=== PATIENT | female | born 1980 | race Caucasian/White ===

== ENCOUNTER 2016-06-28 01:04 | Inpatient (IN) | payer OTHER ==
[2016-06-28] VITALS (10 sets, daily range): BP systolic 118–147; BP diastolic 64–99
[~2016-06-28] VITALS: Ht 172.7 cm; Wt 49.0 kg
--- NOTE | ~2016-06-28 | CON ---
[place], [place] REPORT OF CONSULTATION NAME: KYLEE TRAORE UNIT #: [id number] ROOM: 404 DOCTOR: BC BREWSTER MD BIRTHDATE: [birth year] DOS: 07/01/2016 CHIEF COMPLAINT: "I need help, I really do." HISTORY OF PRESENT ILLNESS: This is a 35-year-old white female who was brought to the Emergency Room with altered mental status. The patient had apparently gone to a [employer] party and went home, went to bed, woke up in an agitated, combative state. She was very variable. Her boyfriend did call EMS who did give her some Narcan because she was somewhat unresponsive by the time they got there. This had limited benefit. She was brought to the Emergency Room and later admitted to the ICU for further stabilization. The patient apparently has a significant history of snorting heroin and also using cocaine. She does report currently that she has been increasingly depressed and despondent and is stressed out by life and does feel that she needs to be seen by a counseling psychiatrist. She reports having been seen in the past by psychiatrist and has a lengthy history of medication trials. Per her report, they have been unsuccessful. PAST MEDICAL HISTORY: Remarkable for polysubstance abuse, possible bipolar disorder, lupus, SIRS, STD exposure, dermatitis. MENTAL STATUS: The patient is alert and oriented. She does appear quite depressed and despondent. She has some anxious overtones. There is no overt hypomania or brett. There are no auditory or visual hallucinations, delusions, or paranoia. Memory is intact. DIAGNOSIS: Bipolar type 2 and polysubstance abuse. PLAN: I will start her on Vistaril 50 mg 3 times a day as a non-addictive antianxiety agent and also start her on Trintellix 10 mg daily as an antidepressant that will help with anxiety. She would benefit greatly from outpatient therapy and I would suggest that she follow up at [facility] to see a counselor there and also to see either Regina Weiss or Gabriela for further medication management. BC BREWSTER MD CM:CONSTR:REPORT OF CONSULTATION 0853 07/01/16 1116 interface
[~2016-06-28 01:04] MED LIST: ALBUTEROL0.09 MG/A2 INH; AMOXICILLIN500 M2 PO; AMOXICILLIN500 MG PO; AMOXIL500 MG PO; ATARAX25 MG PO; ATIVAN0.5 MG PO; AUGMENTIN 875875 MG PO; BACTRIM DS 8001 TA1 PO; BACTROBAN CREAM15 GM PO; BENADRYL25 M1 PO; BENADRYL25 MG PO; BUSPAR15 MG PO; CELEXA20 MG PO; CIPRO500 MG PO; CIPRODEX 0.3%-7.5 ML OT; CIPROFLOXACIN500 MG PO; CLARITIN10 MG PO; CYCLOBENZAPRINE10 MG PO; DARVOCET N 1001 TAB PO; DAYPRO600 M1 PO; EFFEXOR XR75 M1 PO; ELIMITE 5%60 GM PO; FLAGYL500 MG PO; FLEXERIL10 MG PO; GEODON20 MG PO; HYCODAN 1.5 MG480 M1 PO; HYDROCODONE BIT1 T11 PO; KEFLEX500 MG PO; KENALOG 0.1% OI15 GM PO; MEDROL DOSEPAK4 MG PO; MOTRIN600 MG PO; MOTRIN800 MG PO; MYCOLOG CREAM 115 GM T; NAPROSYN375 MG PO; NAPROSYN500 MG PO; NKHM; PERCOCET 325 MG1 TA2 PO; PERCOCET 325 MG1 TA5 PO; PHENERGAN12.5 MG RC; PREDNICOT20 MG PO; PREDNISONE10 MG PO; PREDNISONE50 MG PO; PROVENTIL0.09 MG/AC IH; Peridex 473 ML473 ML PO; Phenergan25 MG PO; REQUIP0.25 MG PO; ROBAXIN500 MG PO; ROBAXIN750 MG PO; TRAMADOL HCL50 MG PO; TRIMOX500 MG PO; TYLENOL W/CODEI1 TA2 PO; ULTRAM50 MG PO; VALIUM10 MG PO; VENTOLIN0.09 MG/AC IH; VICODIN 5/500 505 MG PO; VISTARIL25 M2 PO; VISTARIL50 MG PO; VOLTAREN50 M1 PO; XANAX0.5 MG PO; ZANTAC150 MG PO; ZITHROMAX250 MG PO; ZOFRAN ODT4 MG SL; ZOFRAN ODT8 MG PO
[2016-06-28 01:37] LABS: BASO % 0.2 % (0.0-1.0); EOS # 0.1 10*3/uL (0.0-0.4); EOS % 0.6 % (1.0-4.0); HEMATOCRIT 40.1 % (37.0-47.0); HEMOGLOBIN 13.6 g/dl (12.0-16.0); LYMPH # 1.2 10*3/uL (1.3-4.4); LYMPH % 14.5 % (27.0-41.0); MEAN CORPUSCULAR HGB 31.6 pg (27.0-31.0); MEAN CORPUSCULAR HGB CONC 33.9 g/dl (33.0-37.0); MEAN PLATELET VOLUME 10.2 fl (9.6-12.3); MONO # 0.6 10*3/uL (0.1-1.0); MONO % 6.6 % (3.0-9.0); NEUT # 6.6 10*3/uL (2.3-7.9); NEUT % 77.9 % (47.0-73.0); PLATELET COUNT AUTOMATED 250 10*3/uL (130-400); RED BLOOD COUNT 4.31 10*6/uL (4.10-5.10); RED CELL DISTRI WIDTH 13.2 % (0-14.5); WHITE BLOOD COUNT 8.4 10*3/uL (4.8-10.8)
[2016-06-28 01:53] LABS: ALKALINE PHOSPHATASE 53 U/L (45-117); BILIRUBIN, TOTAL 0.7 mg/dl (0.2-1.0); BUN 9 mg/dl (7-24); CARBON DIOXIDE 28 mmol/L (21-32); CHLORIDE 104 mmol/L (98-107); EST GLOM FILT AFRICAN AMERICAN > 60 ml/min; GLUCOSE 120 mg/dL (65-99); POTASSIUM 3.8 mmol/L (3.5-5.1); SGOT/AST 13 IU/L (3-35); SGPT/ALT 15 U/L (12-78); SODIUM 139 mmol/L (136-145); TOTAL PROTEIN 7.5 gm/dL (6.4-8.2)
[2016-06-28 01:55] LABS: MAGNESIUM 2.7 mg/dL (1.5-2.1)
[2016-06-28 01:56] LABS: B-hCG (QUALITATIVE) NEGATIVE (NEGATIVE)
[2016-06-28 02:08] LABS: TROPONIN I < 0.015 ng/ml (<0.045)
[2016-06-28 02:13] LABS: BILIRUBIN NEGATIVE (NEGATIVE); BLOOD NEGATIVE (NEGATIVE); CLARITY CLEAR (CLEAR); COLOR YELLOW (YELLOW); GLUCOSE NEGATIVE (NEGATIVE); KETONE NEGATIVE (NEGATIVE); LEUKO ESTERASE NEGATIVE (NEGATIVE); NITRITE NEGATIVE (NEGATIVE); PROTEIN 2+ (NEGATIVE); SPECIFIC GRAVITY 1.025 (1.005-1.030); UROBILINOGEN 0.2 E.U./dl (0.2-1.0)
[2016-06-28 02:23] LABS: URINE AMPHETAMINES < 1000 (1000ng/ml); URINE BARBITURATES < 200 (200ng/ml); URINE COCAINE > 300 (300ng/ml)
[2016-06-28 02:26] LABS: EPITHELIAL CELLS 20-25
[2016-06-28 02:27] LABS: BACTERIA TRACE; URINE REFLEX COMMENT NO (NO); WBC 0-2 wbc/hpf (0-5)
[2016-06-28 06:10] LABS: CKMB 0.9 ng/ml (0.5-3.6); CPK 63 U/L (26-192)
[2016-06-28 06:13] LABS: TROPONIN I < 0.015 ng/ml (<0.045)
[2016-06-28 12:46] LABS: CKMB 0.8 ng/ml (0.5-3.6); CPK 71 U/L (26-192)
[2016-06-28 12:47] LABS: TROPONIN I < 0.015 ng/ml (<0.045)
[2016-06-28 18:20] LABS: CKMB 0.6 ng/ml (0.5-3.6); CPK 64 U/L (26-192)
[2016-06-28 18:21] LABS: TROPONIN I < 0.015 ng/ml (<0.045)
[2016-06-29] VITALS: BP 123/85
[2016-06-29 04:00] VITALS: BP 120/81
[2016-06-29 06:13] LABS: BUN 11 mg/dl (7-24); CARBON DIOXIDE 20 mmol/L (21-32); CHLORIDE 111 mmol/L (98-107); EST GLOM FILT AFRICAN AMERICAN > 60 ml/min; GLUCOSE 73 mg/dL (65-99); POTASSIUM 3.5 mmol/L (3.5-5.1); SODIUM 142 mmol/L (136-145)
[2016-06-29 08:00] VITALS: BP 124/86
[2016-06-29 16:00] VITALS: BP 118/88
[2016-06-29 20:02] VITALS: BP 132/82
[2016-06-30] VITALS: BP 129/77
[2016-06-30 04:00] VITALS: BP 130/76
[2016-06-30 08:00] VITALS: BP 139/82
[2016-06-30 15:44] VITALS: BP 133/82
[2016-06-30 20:00] VITALS: BP 122/82
[2016-07-01] VITALS: BP 133/81
[2016-07-01 04:00] VITALS: BP 127/79
[2016-07-01 05:58] LABS: BASO % 0.4 % (0.0-1.0); EOS # 0.2 10*3/uL (0.0-0.4); EOS % 3.4 % (1.0-4.0); HEMATOCRIT 36.4 % (37.0-47.0); HEMOGLOBIN 12.1 g/dl (12.0-16.0); LYMPH # 2.1 10*3/uL (1.3-4.4); LYMPH % 41.4 % (27.0-41.0); MEAN CELL VOLUME 92.9 fl (81.0-99.0); MEAN CORPUSCULAR HGB 30.9 pg (27.0-31.0); MEAN CORPUSCULAR HGB CONC 33.2 g/dl (33.0-37.0); MEAN PLATELET VOLUME 10.6 fl (9.6-12.3); MONO # 0.5 10*3/uL (0.1-1.0); MONO % 9.5 % (3.0-9.0); NEUT # 2.2 10*3/uL (2.3-7.9); NEUT % 44.9 % (47.0-73.0); PLATELET COUNT AUTOMATED 215 10*3/uL (130-400); RED BLOOD COUNT 3.92 10*6/uL (4.10-5.10); RED CELL DISTRI WIDTH 13.1 % (0-14.5)
[2016-07-01 06:14] LABS: BUN 3 mg/dl (7-24); CARBON DIOXIDE 26 mmol/L (21-32); CHLORIDE 110 mmol/L (98-107); EST GLOM FILT AFRICAN AMERICAN > 60 ml/min; GLUCOSE 97 mg/dL (65-99); POTASSIUM 3.6 mmol/L (3.5-5.1); SODIUM 142 mmol/L (136-145)
[2016-07-01 08:00] VITALS: BP 100/59
[2016-07-01] MEDS ORDERED: ATARAX,VISTARIL50 MG PO (11:21)
[2016-07-01] MEDS ORDERED: BRIN10TA PO (11:21)
== END 2016-07-01 11:47 | disposition home or self-care (01) | DRG 91 ==
LOC: ED 01:04 → EDHOLD 04:17 → ICCU 04:17 → 4E 07-01 11:15 → ICCU 07-01 11:24
PROVIDERS: Emergency Medicine Emergency Medical Services; Family Medicine; Internal Medicine
DX: G92 Toxic encephalopathy (principal); E43 Unspecified severe protein-calorie malnutrition; F31.81 Bipolar II disorder; Z68.1 Body mass index [BMI] 19.9 or less, adult; F11.10 Opioid abuse, uncomplicated; F14.90 Cocaine use, unspecified, uncomplicated; T50.995A Adverse effect of other drugs, medicaments and biological substances, initial encounter; F19.10 Other psychoactive substance abuse, uncomplicated; F41.9 Anxiety disorder, unspecified; Z87.440 Personal history of urinary (tract) infections; Z98.51 Tubal ligation status; Z90.710 Acquired absence of both cervix and uterus; Z90.10 Acquired absence of unspecified breast and nipple; Z82.49 Family history of ischemic heart disease and other diseases of the circulatory system; Z84.89 Family history of other specified conditions; Z88.8 Allergy status to other drugs, medicaments and biological substances; Z68.23 Body mass index [BMI] 23.0-23.9, adult; Y92.89 Other specified places as the place of occurrence of the external cause

== ENCOUNTER 2016-08-14 15:01 | Emergency (ER) | payer OTHER ==
[~2016-08-14] VITALS: Wt 55.3 kg
[~2016-08-14 15:01] MED LIST changes: +ATARAX,VISTARIL50 MG PO; +BRIN10TA PO
[2016-08-14 15:05] VITALS: BP 138/72
[2016-08-14] MEDS ORDERED: HYDROXYZINE HCL25 M1 PO (15:06)
[2016-08-14] MEDS ORDERED: VISTARIL50 MG PO (15:25)
== END 2016-08-14 15:23 | disposition home or self-care (01) ==
LOC: ED 15:01
DX: Z76.0 Encounter for issue of repeat prescription (principal); R03.0 Elevated blood-pressure reading, without diagnosis of hypertension; F31.9 Bipolar disorder, unspecified; F14.10 Cocaine abuse, uncomplicated; M32.9 Systemic lupus erythematosus, unspecified; F17.200 Nicotine dependence, unspecified, uncomplicated; Z90.89 Acquired absence of other organs; Z90.710 Acquired absence of both cervix and uterus; Z98.51 Tubal ligation status; Z98.890 Other specified postprocedural states; Z88.8 Allergy status to other drugs, medicaments and biological substances; Z88.6 Allergy status to analgesic agent; Z79.899 Other long term (current) drug therapy

== ENCOUNTER 2016-08-23 17:49 | Emergency (ER) | payer OTHER ==
[~2016-08-23] VITALS: Wt 59.0 kg
[~2016-08-23 17:49] MED LIST changes: +HYDROXYZINE HCL25 M1 PO
[2016-08-23 17:54] VITALS: BP 136/70
[2016-08-23] MEDS ORDERED: PREDNISONE10 MG PO (18:03)
== END 2016-08-23 18:08 | disposition home or self-care (01) ==
LOC: ED 17:49
DX: L30.9 Dermatitis, unspecified (principal); R03.0 Elevated blood-pressure reading, without diagnosis of hypertension; F14.10 Cocaine abuse, uncomplicated; F11.10 Opioid abuse, uncomplicated; F17.200 Nicotine dependence, unspecified, uncomplicated; Z88.6 Allergy status to analgesic agent; Z88.1 Allergy status to other antibiotic agents

== ENCOUNTER 2016-10-27 17:46 | Emergency (ER) | payer OTHER ==
[~2016-10-27] VITALS: Ht 160 cm; Wt 58.5 kg
[2016-10-27 17:50] VITALS: BP 145/82
[2016-10-27] MEDS ORDERED: Motrin,Rufen800 MG PO (20:00)
[2016-10-27] MEDS ORDERED: HYDROCODONE BIT1 T11 PO (20:00)
== END 2016-10-27 19:56 | disposition home or self-care (01) ==
LOC: ED 17:46
DX: S93.401A Sprain of unspecified ligament of right ankle, initial encounter (principal); F14.10 Cocaine abuse, uncomplicated; F11.10 Opioid abuse, uncomplicated; F17.200 Nicotine dependence, unspecified, uncomplicated; Z88.6 Allergy status to analgesic agent; W19.XXXA Unspecified fall, initial encounter; Y93.89 Activity, other specified; Y92.89 Other specified places as the place of occurrence of the external cause; Y99.8 Other external cause status

== ENCOUNTER 2016-11-19 06:40 | Inpatient (IN) | payer OTHER ==
[2016-11-19] VITALS (56 sets, daily range): BP systolic 68–123; BP diastolic 29–69
[~2016-11-19] VITALS: Ht 162.5 cm; Wt 61.2 kg
--- NOTE | ~2016-11-19 | CON ---
[place], [place] REPORT OF CONSULTATION NAME: KYLEE TRAORE UNIT #: [id number] ROOM: [facility] DOCTOR: PIERO SCHMIDT ED.D) BIRTHDATE: [birth year] DOS: 11/22/2016 HISTORY OF PRESENT ILLNESS: The patient is 36-year-old female referred by the hospitalist for an evaluation following a suicide attempt. At the present time, this patient is in the intensive care unit at [facility]. She states she is and has 2 children. She does not work and has applied for SSI. She follows up at [facility] for her medical care. Her medical history is pertinent for bipolar 1, lupus, laceration of both wrists, history of benzodiazepine abuse, alcohol abuse, heroin abuse, cocaine abuse and tobacco abuse. Her home medications include Cogentin, Vistaril, Motrin and Zyprexa. This patient does admit to using multiple drugs along with alcohol, but she states she does not abuse these drugs. She was awake, alert and oriented in all three spheres. She denies any suicidal ideation or plan. She does not appear to be having any active hallucinations or delusional thoughts. This patient states she follows at [facility] in [place], [place] for her mental health care. She has a therapist by the name of Celina. She also follows with a psychiatrist through [facility]. I asked her why she did not contact [facility] when she felt depressed and overwhelmed. She states she did not know, but she states she will never do that again. Denies suicidal ideation or plan. She states she is going to do nothing to harm herself whatsoever. In my opinion, this patient is not suicidal at the present time, but I did discuss this with the hospitalist and they would like her stay 1 more day until her lungs are clear. I suggested that case management would appropriately follow her and make certain she has an appointment to go immediately to [facility] when she is discharged from the hospital. DIAGNOSES: 1. Bipolar 1. 2. Suicide attempt. 3. Cocaine abuse. RECOMMENDATIONS: The patient should follow up at [facility] in [place], [place] for outpatient psychology and psychiatry. Thank you very much for this consult. PIERO SCHMIDT ED.D CM:CONSTR:REPORT OF CONSULTATION 1037 11/23/16 1112 interface
[~2016-11-19 06:40] MED LIST changes: +Motrin,Rufen800 MG PO
[2016-11-19 07:03] LABS: BILIRUBIN NEGATIVE (NEGATIVE); BLOOD NEGATIVE (NEGATIVE); CLARITY CLEAR (CLEAR); COLOR YELLOW (YELLOW); GLUCOSE NEGATIVE (NEGATIVE); KETONE NEGATIVE (NEGATIVE); LEUKO ESTERASE NEGATIVE (NEGATIVE); NITRITE NEGATIVE (NEGATIVE); PH 5.5 (5.0-9.0); SPECIFIC GRAVITY <= 1.005 (1.005-1.030); UROBILINOGEN 0.2 E.U./dl (0.2-1.0)
[2016-11-19 07:10] LABS: BASO % 0.3 % (0.0-1.0); EOS # 0.1 10*3/uL (0.0-0.4); EOS % 0.8 % (1.0-4.0); HEMATOCRIT 35.6 % (37.0-47.0); HEMOGLOBIN 11.6 g/dl (12.0-16.0); LYMPH # 2.8 10*3/uL (1.3-4.4); LYMPH % 22.8 % (27.0-41.0); MEAN CELL VOLUME 91.5 fl (81.0-99.0); MEAN CORPUSCULAR HGB 29.8 pg (27.0-31.0); MEAN CORPUSCULAR HGB CONC 32.6 g/dl (33.0-37.0); MEAN PLATELET VOLUME 10.5 fl (9.6-12.3); MONO # 1.1 10*3/uL (0.1-1.0); MONO % 9.3 % (3.0-9.0); NEUT # 8.1 10*3/uL (2.3-7.9); NEUT % 66.5 % (47.0-73.0); PLATELET COUNT AUTOMATED 200 10*3/uL (130-400); RED BLOOD COUNT 3.89 10*6/uL (4.10-5.10); RED CELL DISTRI WIDTH 13.2 % (0-14.5); WHITE BLOOD COUNT 12.2 10*3/uL (4.8-10.8)
[2016-11-19 07:12] LABS: URINE AMPHETAMINES < 1000 (1000ng/ml); URINE BARBITURATES < 200 (200ng/ml); URINE BENZODIAZEPINES < 200 (200ng/ml); URINE CANNABINOIDS (THC) < 50 (50ng/ml); URINE COCAINE > 300 (300ng/ml); URINE METHADONE < 300 (300ng/ml); URINE OPIATES < 300 (300ng/ml)
[2016-11-19 07:17] LABS: URINE PHENCYCLIDINE < 25 (25ng/ml)
[2016-11-19 07:24] LABS: EPITHELIAL CELLS 0-2; RBC 0-2 rbc/hpf (0-2)
[2016-11-19 07:26] LABS: ACETAMINOPHEN (TYLENOL) 2.3 ug/ml (10-30); ALBUMIN 3.2 gm/dl (3.1-4.5); ALKALINE PHOSPHATASE 44 U/L (45-117); BUN 8 mg/dl (7-24); CHLORIDE 109 mmol/L (98-107); CREATININE 0.82 mg/dL (0.55-1.02); POTASSIUM 3.8 mmol/L (3.5-5.1); SGOT/AST 16 IU/L (3-35); SGPT/ALT 14 U/L (12-78); SODIUM 140 mmol/L (136-145); TOTAL PROTEIN 6.4 gm/dL (6.4-8.2)
[2016-11-19] MEDS ORDERED: ZYPREXA5 M1 PO (09:44)
[2016-11-19] MEDS ORDERED: COGENTIN0.5 MG PO (09:45)
[2016-11-19 13:15] LABS: ABG BASE EXCESS -5.9 mmol/L (-2.0-2.0); ABG HCO3 19.3 mmol/l (22-26); ABG O2 SATURATION 99.6 % (95-97); ARTERIAL BLOOD GAS PCO2 38.8 mmHg (35-45); ARTERIAL BLOOD GAS PH 7.316 (7.35-7.45)
[2016-11-19 15:13] LABS: ABG HCO3 18.1 mmol/l (22-26); ABG O2 SATURATION 99.1 % (95-97); ARTERIAL BLOOD GAS PCO2 35.3 mmHg (35-45); ARTERIAL BLOOD GAS PH 7.329 (7.35-7.45)
[2016-11-19 15:14] LABS: ABG BASE EXCESS -6.7 mmol/L (-2.0-2.0)
[2016-11-19 19:09] LABS: ABG HCO3 18.3 mmol/l (22-26); ABG O2 SATURATION 99.2 % (95-97); ARTERIAL BLOOD GAS PCO2 32.5 mmHg (35-45); ARTERIAL BLOOD GAS PH 7.368 (7.35-7.45)
[2016-11-19 19:10] LABS: ABG BASE EXCESS -5.8 mmol/L (-2.0-2.0)
[2016-11-20] VITALS (22 sets, daily range): BP systolic 96–128; BP diastolic 41–69
[2016-11-20 05:57] LABS: ABG BASE EXCESS -1.3 mmol/L (-2.0-2.0); ABG O2 SATURATION 98.6 % (95-97); ARTERIAL BLOOD GAS PCO2 33.3 mmHg (35-45); ARTERIAL BLOOD GAS PH 7.434 (7.35-7.45)
[2016-11-20 06:27] LABS: ALBUMIN 2.8 gm/dl (3.1-4.5); BUN 3 mg/dl (7-24); CHLORIDE 110 mmol/L (98-107); CHOLESTEROL 82 mg/dL (<200); MAGNESIUM 1.7 mg/dL (1.5-2.1); POTASSIUM 3.4 mmol/L (3.5-5.1); SODIUM 139 mmol/L (136-145)
[2016-11-20 06:33] LABS: ALKALINE PHOSPHATASE 46 U/L (45-117); CREATININE 0.55 mg/dL (0.55-1.02); HDL CHOLESTEROL 33 mg/dl (40-60); LDL CHOLESTEROL 33 mg/dL (9-159); PHOSPHOROUS 3.4 mg/dL (2.5-4.9); SGOT/AST 22 IU/L (3-35); SGPT/ALT 19 U/L (12-78); THYROID STIM HORMONE (HS) 0.462 uIU/ml (0.358-4.75); TOTAL PROTEIN 5.7 gm/dL (6.4-8.2); TRIGLYCERIDES 82 mg/dl (<150); VLDL CHOLESTEROL 16 mg/dL (6-40)
[2016-11-20 06:47] LABS: BASO % 0.2 % (0.0-1.0); EOS % 0.3 % (1.0-4.0); HEMATOCRIT 31.8 % (37.0-47.0); HEMOGLOBIN 10.7 g/dl (12.0-16.0); LYMPH # 1.1 10*3/uL (1.3-4.4); LYMPH % 10.8 % (27.0-41.0); MEAN CELL VOLUME 90.9 fl (81.0-99.0); MEAN CORPUSCULAR HGB 30.6 pg (27.0-31.0); MEAN CORPUSCULAR HGB CONC 33.6 g/dl (33.0-37.0); MEAN PLATELET VOLUME 10.5 fl (9.6-12.3); MONO # 1.1 10*3/uL (0.1-1.0); MONO % 10.9 % (3.0-9.0); NEUT # 8.1 10*3/uL (2.3-7.9); NEUT % 77.5 % (47.0-73.0); PLATELET COUNT AUTOMATED 191 10*3/uL (130-400); RED CELL DISTRI WIDTH 13.4 % (0-14.5); WHITE BLOOD COUNT 10.4 10*3/uL (4.8-10.8)
[2016-11-20 07:35] LABS: VITAMIN D, 25-HYDROXY 21.3 ng/mL (30-100)
[2016-11-21 03:59] VITALS: BP 101/58
[2016-11-21 05:51] LABS: BASO % 0.3 % (0.0-1.0); EOS # 0.1 10*3/uL (0.0-0.4); EOS % 1.1 % (1.0-4.0); HEMATOCRIT 29.9 % (37.0-47.0); HEMOGLOBIN 9.8 g/dl (12.0-16.0); LYMPH # 1.3 10*3/uL (1.3-4.4); LYMPH % 10.1 % (27.0-41.0); MEAN CELL VOLUME 91.7 fl (81.0-99.0); MEAN CORPUSCULAR HGB 30.1 pg (27.0-31.0); MEAN CORPUSCULAR HGB CONC 32.8 g/dl (33.0-37.0); MEAN PLATELET VOLUME 10.7 fl (9.6-12.3); MONO # 1.2 10*3/uL (0.1-1.0); MONO % 8.8 % (3.0-9.0); NEUT # 10.5 10*3/uL (2.3-7.9); NEUT % 79.4 % (47.0-73.0); PLATELET COUNT AUTOMATED 178 10*3/uL (130-400); RED BLOOD COUNT 3.26 10*6/uL (4.10-5.10); RED CELL DISTRI WIDTH 13.2 % (0-14.5); WHITE BLOOD COUNT 13.2 10*3/uL (4.8-10.8)
[2016-11-21 06:03] LABS: BUN 9 mg/dl (7-24); CHLORIDE 111 mmol/L (98-107); CREATININE 0.58 mg/dL (0.55-1.02); POTASSIUM 3.7 mmol/L (3.5-5.1); SODIUM 143 mmol/L (136-145)
[2016-11-21 08:00] VITALS: BP 91/67
[2016-11-21 12:00] VITALS: BP 109/59
[2016-11-21 16:00] VITALS: BP 115/63
[2016-11-21 20:00] VITALS: BP 99/59
[2016-11-22] VITALS: BP 109/62
[2016-11-22 04:00] VITALS: BP 98/58
[2016-11-22 06:33] LABS: BASO % 0.4 % (0.0-1.0); EOS # 0.4 10*3/uL (0.0-0.4); EOS % 3.8 % (1.0-4.0); HEMATOCRIT 29.3 % (37.0-47.0); HEMOGLOBIN 9.9 g/dl (12.0-16.0); LYMPH # 1.7 10*3/uL (1.3-4.4); LYMPH % 18.1 % (27.0-41.0); MEAN CELL VOLUME 90.7 fl (81.0-99.0); MEAN CORPUSCULAR HGB 30.7 pg (27.0-31.0); MEAN CORPUSCULAR HGB CONC 33.8 g/dl (33.0-37.0); MEAN PLATELET VOLUME 10.9 fl (9.6-12.3); MONO # 0.7 10*3/uL (0.1-1.0); MONO % 7.5 % (3.0-9.0); NEUT # 6.4 10*3/uL (2.3-7.9); NEUT % 69.9 % (47.0-73.0); PLATELET COUNT AUTOMATED 187 10*3/uL (130-400); RED BLOOD COUNT 3.23 10*6/uL (4.10-5.10); RED CELL DISTRI WIDTH 12.7 % (0-14.5); WHITE BLOOD COUNT 9.2 10*3/uL (4.8-10.8)
[2016-11-22 06:49] LABS: ALBUMIN 2.6 gm/dl (3.1-4.5); ALKALINE PHOSPHATASE 47 U/L (45-117); BUN 11 mg/dl (7-24); CHLORIDE 111 mmol/L (98-107); CREATININE 0.46 mg/dL (0.55-1.02); MAGNESIUM 2.1 mg/dL (1.5-2.1); PHOSPHOROUS 2.7 mg/dL (2.5-4.9); POTASSIUM 3.6 mmol/L (3.5-5.1); SGOT/AST 11 IU/L (3-35); SGPT/ALT 15 U/L (12-78); SODIUM 140 mmol/L (136-145); TOTAL PROTEIN 6.2 gm/dL (6.4-8.2)
[2016-11-22 08:00] VITALS: BP 97/53
[2016-11-22 12:00] VITALS: BP 112/61
[2016-11-22 16:00] VITALS: BP 109/65
[2016-11-22 20:00] VITALS: BP 110/65
[2016-11-23] VITALS: BP 114/61
[2016-11-23 04:00] VITALS: BP 100/61
[2016-11-23 06:11] LABS: BASO % 0.5 % (0.0-1.0); EOS # 0.2 10*3/uL (0.0-0.4); EOS % 3.1 % (1.0-4.0); HEMATOCRIT 34.2 % (37.0-47.0); HEMOGLOBIN 11.6 g/dl (12.0-16.0); LYMPH # 2.3 10*3/uL (1.3-4.4); LYMPH % 30.7 % (27.0-41.0); MEAN CELL VOLUME 90.2 fl (81.0-99.0); MEAN CORPUSCULAR HGB 30.6 pg (27.0-31.0); MEAN CORPUSCULAR HGB CONC 33.9 g/dl (33.0-37.0); MEAN PLATELET VOLUME 10.3 fl (9.6-12.3); MONO # 0.5 10*3/uL (0.1-1.0); MONO % 7.4 % (3.0-9.0); NEUT # 4.3 10*3/uL (2.3-7.9); RED BLOOD COUNT 3.79 10*6/uL (4.10-5.10); RED CELL DISTRI WIDTH 12.6 % (0-14.5); WHITE BLOOD COUNT 7.3 10*3/uL (4.8-10.8)
[2016-11-23 06:26] LABS: ALBUMIN 2.8 gm/dl (3.1-4.5); ALKALINE PHOSPHATASE 50 U/L (45-117); BUN 8 mg/dl (7-24); CHLORIDE 111 mmol/L (98-107); CREATININE 0.61 mg/dL (0.55-1.02); POTASSIUM 3.9 mmol/L (3.5-5.1); SGOT/AST 10 IU/L (3-35); SGPT/ALT 15 U/L (12-78); SODIUM 138 mmol/L (136-145); TOTAL PROTEIN 6.7 gm/dL (6.4-8.2)
[2016-11-23 06:53] LABS: PLATELET COUNT AUTOMATED 259 10*3/uL (130-400)
[2016-11-23 08:00] VITALS: BP 107/64
[2016-11-23 12:00] VITALS: BP 111/63
[2016-11-23 16:00] VITALS: BP 109/60
[2016-11-23 20:00] VITALS: BP 104/60
[2016-11-24] VITALS: BP 110/63
[2016-11-24 04:00] VITALS: BP 113/73
[2016-11-24 06:24] LABS: BASO % 0.5 % (0.0-1.0); EOS # 0.3 10*3/uL (0.0-0.4); EOS % 4.8 % (1.0-4.0); HEMATOCRIT 33.3 % (37.0-47.0); HEMOGLOBIN 11.4 g/dl (12.0-16.0); LYMPH # 2.3 10*3/uL (1.3-4.4); LYMPH % 38.9 % (27.0-41.0); MEAN CELL VOLUME 88.8 fl (81.0-99.0); MEAN CORPUSCULAR HGB 30.4 pg (27.0-31.0); MEAN CORPUSCULAR HGB CONC 34.2 g/dl (33.0-37.0); MEAN PLATELET VOLUME 9.8 fl (9.6-12.3); MONO # 0.6 10*3/uL (0.1-1.0); MONO % 9.5 % (3.0-9.0); NEUT # 2.7 10*3/uL (2.3-7.9); NEUT % 46.1 % (47.0-73.0); PLATELET COUNT AUTOMATED 271 10*3/uL (130-400); RED BLOOD COUNT 3.75 10*6/uL (4.10-5.10); RED CELL DISTRI WIDTH 12.6 % (0-14.5); WHITE BLOOD COUNT 5.8 10*3/uL (4.8-10.8)
[2016-11-24 06:44] LABS: BUN 9 mg/dl (7-24); CHLORIDE 107 mmol/L (98-107); CREATININE 0.58 mg/dL (0.55-1.02); POTASSIUM 3.8 mmol/L (3.5-5.1); SODIUM 140 mmol/L (136-145)
[2016-11-24 08:00] VITALS: BP 99/63
[2016-11-24 12:00] VITALS: BP 106/53
[2016-11-24 16:00] VITALS: BP 105/62
[2016-11-24] MEDS ORDERED: Vitamin D PO (18:15)
[2016-11-24] MEDS ORDERED: LEVAQUIN750 M1 PO (18:15)
[2016-11-24] MEDS ORDERED: Bactroban Oint22 GM T (18:15)
== END 2016-11-24 19:10 | disposition home or self-care (01) | DRG 917 ==
LOC: ED 06:40 → EDHOLD 07:58 → ICCU 07:58
PROVIDERS: Emergency Medicine Emergency Medical Services; Internal Medicine; ADMIT Internal Medicine
PROC: 5A1935Z Respiratory Ventilation, Less than 24 Consecutive Hours (ICD-10-PCS; principal; 2016-11-19)
PROC: 0BH17EZ Insertion of Endotracheal Airway into Trachea, Via Natural or Artificial Opening (ICD-10-PCS; 2016-11-19)
PROC: 0HQEXZZ Repair Left Lower Arm Skin, External Approach (ICD-10-PCS; 2016-11-19)
PROC: 0HQDXZZ Repair Right Lower Arm Skin, External Approach (ICD-10-PCS; 2016-11-19)
DX: T48.4X2A Poisoning by expectorants, intentional self-harm, initial encounter (principal); G93.41 Metabolic encephalopathy; J96.01 Acute respiratory failure with hypoxia; J18.9 Pneumonia, unspecified organism; E44.0 Moderate protein-calorie malnutrition; E87.2 Acidosis; I95.9 Hypotension, unspecified; R65.10 Systemic inflammatory response syndrome (SIRS) of non-infectious origin without acute organ dysfunction; E87.8 Other disorders of electrolyte and fluid balance, not elsewhere classified; F31.9 Bipolar disorder, unspecified; F11.10 Opioid abuse, uncomplicated; D64.9 Anemia, unspecified; R73.9 Hyperglycemia, unspecified; F13.10 Sedative, hypnotic or anxiolytic abuse, uncomplicated; F14.10 Cocaine abuse, uncomplicated; E87.6 Hypokalemia; S61.512A Laceration without foreign body of left wrist, initial encounter; F10.129 Alcohol abuse with intoxication, unspecified; S61.511A Laceration without foreign body of right wrist, initial encounter; X78.9XXA Intentional self-harm by unspecified sharp object, initial encounter; T44.3X2A Poisoning by other parasympatholytics [anticholinergics and antimuscarinics] and spasmolytics, intentional self-harm, initial encounter; T43.592A Poisoning by other antipsychotics and neuroleptics, intentional self-harm, initial encounter; T43.212A Poisoning by selective serotonin and norepinephrine reuptake inhibitors, intentional self-harm, initial encounter; Y93.89 Activity, other specified; Y92.89 Other specified places as the place of occurrence of the external cause; Z72.0 Tobacco use; Y99.8 Other external cause status; Z88.8 Allergy status to other drugs, medicaments and biological substances; Z90.710 Acquired absence of both cervix and uterus; Z98.51 Tubal ligation status; Z87.39 Personal history of other diseases of the musculoskeletal system and connective tissue; Z86.2 Personal history of diseases of the blood and blood-forming organs and certain disorders involving the immune mechanism; Z90.13 Acquired absence of bilateral breasts and nipples; Z82.49 Family history of ischemic heart disease and other diseases of the circulatory system; Z82.3 Family history of stroke; Z82.5 Family history of asthma and other chronic lower respiratory diseases; Z79.899 Other long term (current) drug therapy; Z84.89 Family history of other specified conditions

== ENCOUNTER 2017-01-18 23:42 | Emergency (ER) | payer OTHER ==
[~2017-01-18] VITALS: Ht 160 cm; Wt 59.0 kg
[~2017-01-18 23:42] MED LIST changes: +Bactroban Oint22 GM T; +COGENTIN0.5 MG PO; +LEVAQUIN750 M1 PO; +Vitamin D PO; +ZYPREXA5 M1 PO
[2017-01-18 23:49] VITALS: BP 104/73
[2017-01-19 00:08] LABS: BASO % 0.4 % (0.0-1.0); EOS # 0.1 10*3/uL (0.0-0.4); EOS % 0.8 % (1.0-4.0); HEMATOCRIT 36.4 % (37.0-47.0); HEMOGLOBIN 12.1 g/dl (12.0-16.0); LYMPH # 1.9 10*3/uL (1.3-4.4); LYMPH % 21.2 % (27.0-41.0); MEAN CELL VOLUME 92.6 fl (81.0-99.0); MEAN CORPUSCULAR HGB 30.8 pg (27.0-31.0); MEAN CORPUSCULAR HGB CONC 33.2 g/dl (33.0-37.0); MEAN PLATELET VOLUME 10.2 fl (9.6-12.3); MONO # 0.5 10*3/uL (0.1-1.0); MONO % 5.8 % (3.0-9.0); NEUT # 6.4 10*3/uL (2.3-7.9); NEUT % 71.5 % (47.0-73.0); PLATELET COUNT AUTOMATED 265 10*3/uL (130-400); RED BLOOD COUNT 3.93 10*6/uL (4.10-5.10); RED CELL DISTRI WIDTH 13.7 % (0-14.5)
[2017-01-19 00:27] LABS: ACETAMINOPHEN (TYLENOL) < 2.0 ug/ml (10-30); ALBUMIN 3.5 gm/dl (3.1-4.5); ALKALINE PHOSPHATASE 44 U/L (45-117); BUN 9 mg/dl (7-24); CHLORIDE 110 mmol/L (98-107); CREATININE 1.42 mg/dL (0.55-1.02); ETHYL ALCOHOL < 3.0 mg/dl (<3); POTASSIUM 3.8 mmol/L (3.5-5.1); SGOT/AST 5 IU/L (3-35); SGPT/ALT 10 U/L (12-78); SODIUM 142 mmol/L (136-145); TOTAL PROTEIN 6.8 gm/dL (6.4-8.2)
[2017-01-19 00:29] LABS: TROPONIN I < 0.015 ng/ml (<0.045)
[2017-01-19 00:46] LABS: BILIRUBIN NEGATIVE (NEGATIVE); BLOOD NEGATIVE (NEGATIVE); CLARITY SL CLOUDY (CLEAR); COLOR YELLOW (YELLOW); GLUCOSE NEGATIVE (NEGATIVE); KETONE TRACE (NEGATIVE); LEUKO ESTERASE NEGATIVE (NEGATIVE); NITRITE NEGATIVE (NEGATIVE); SPECIFIC GRAVITY 1.015 (1.005-1.030); UROBILINOGEN 0.2 E.U./dl (0.2-1.0)
[2017-01-19 00:55] LABS: EPITHELIAL CELLS 15-20
[2017-01-19 01:02] LABS: URINE AMPHETAMINES < 1000 (1000ng/ml); URINE BARBITURATES < 200 (200ng/ml); URINE BENZODIAZEPINES < 200 (200ng/ml); URINE CANNABINOIDS (THC) > 50 (50ng/ml); URINE COCAINE > 300 (300ng/ml); URINE METHADONE < 300 (300ng/ml); URINE OPIATES < 300 (300ng/ml); URINE PHENCYCLIDINE < 25 (25ng/ml)
[2017-01-19] MEDS ORDERED: KETOROLAC10 MG PO (02:00)
== END 2017-01-19 02:04 | disposition home or self-care (01) ==
LOC: ED 23:42
PROVIDERS: Emergency Medicine Emergency Medical Services
DX: F41.9 Anxiety disorder, unspecified (principal); R73.9 Hyperglycemia, unspecified; F31.9 Bipolar disorder, unspecified; E87.8 Other disorders of electrolyte and fluid balance, not elsewhere classified; I95.9 Hypotension, unspecified; E87.6 Hypokalemia; Z88.8 Allergy status to other drugs, medicaments and biological substances; Z79.899 Other long term (current) drug therapy; Z90.710 Acquired absence of both cervix and uterus; Z98.51 Tubal ligation status; Z90.10 Acquired absence of unspecified breast and nipple

== ENCOUNTER 2017-02-28 21:20 | Emergency (ER) | payer OTHER ==
[~2017-02-28] VITALS: Ht 160 cm; Wt 55.8 kg
[~2017-02-28 21:20] MED LIST changes: +KETOROLAC10 MG PO
[2017-02-28 21:26] VITALS: BP 134/81
[2017-02-28] MEDS ORDERED: CYCLOBENZAPRINE5 M3 PO (22:27)
== END 2017-02-28 21:39 | disposition home or self-care (01) ==
LOC: ED 21:20
DX: M54.12 Radiculopathy, cervical region (principal); F17.200 Nicotine dependence, unspecified, uncomplicated; Z88.6 Allergy status to analgesic agent; Z88.8 Allergy status to other drugs, medicaments and biological substances; Z88.1 Allergy status to other antibiotic agents

== ENCOUNTER 2017-06-02 18:59 | Emergency (ER) | payer OTHER ==
[~2017-06-02] VITALS: Ht 167.6 cm; Wt 54.4 kg
[~2017-06-02 18:59] MED LIST changes: +CYCLOBENZAPRINE5 M3 PO
[2017-06-02 19:13] VITALS: BP 114/80
[2017-06-02 20:25] LABS: BILIRUBIN NEGATIVE (NEGATIVE); BLOOD NEGATIVE (NEGATIVE); CLARITY SL CLOUDY (CLEAR); COLOR YELLOW (YELLOW); GLUCOSE NEGATIVE (NEGATIVE); KETONE NEGATIVE (NEGATIVE); LEUKO ESTERASE NEGATIVE (NEGATIVE); NITRITE NEGATIVE (NEGATIVE); PH 7.5 (5.0-9.0); SPECIFIC GRAVITY 1.015 (1.005-1.030); UROBILINOGEN 0.2 E.U./dl (0.2-1.0)
[2017-06-02 20:29] LABS: BACTERIA 1+; EPITHELIAL CELLS TNTC; RBC 0-2 rbc/hpf (0-2); WBC 0-2 wbc/hpf (0-5)
[2017-06-02] MEDS ORDERED: TESSALON PERLE100 M1 PO (20:34)
[2017-06-02] MEDS ORDERED: ZOFRAN ODT4 MG SL (20:34)
[2017-06-02] MEDS ORDERED: PROAIR HFA8.5 GM INH (20:34)
[2017-06-02] MEDS ORDERED: HYCODAN/HYDROMET5 ML PO (20:36)
== END 2017-06-02 20:40 | disposition home or self-care (01) ==
LOC: ED 18:59
PROVIDERS: Physician Assistant
DX: B34.9 Viral infection, unspecified (principal); F17.200 Nicotine dependence, unspecified, uncomplicated; F14.10 Cocaine abuse, uncomplicated; F11.10 Opioid abuse, uncomplicated; G25.81 Restless legs syndrome; Z90.89 Acquired absence of other organs; Z90.710 Acquired absence of both cervix and uterus; Z98.51 Tubal ligation status; Z79.899 Other long term (current) drug therapy; Z88.6 Allergy status to analgesic agent; Z88.8 Allergy status to other drugs, medicaments and biological substances

== ENCOUNTER 2017-07-24 13:04 | Emergency (ER) | payer OTHER ==
[~2017-07-24] VITALS: Wt 54.9 kg
[~2017-07-24 13:04] MED LIST changes: +HYCODAN/HYDROMET5 ML PO; +PROAIR HFA8.5 GM INH; +TESSALON PERLE100 M1 PO
[2017-07-24 13:07] VITALS: BP 121/81
[2017-07-24] MEDS ORDERED: KEFLEX500 M1 PO (13:21)
[2017-07-24] MEDS ORDERED: SEPTDS PO (13:21)
[2017-07-24] MEDS ORDERED: TYLENOL EXTRA500 MG PO (13:21)
== END 2017-07-24 13:26 | disposition home or self-care (01) ==
LOC: ED 13:04
DX: L03.012 Cellulitis of left finger (principal); F17.200 Nicotine dependence, unspecified, uncomplicated; F11.10 Opioid abuse, uncomplicated; F14.10 Cocaine abuse, uncomplicated; E78.00 Pure hypercholesterolemia, unspecified; Z90.89 Acquired absence of other organs; Z98.51 Tubal ligation status; Z98.890 Other specified postprocedural states; Z88.6 Allergy status to analgesic agent; Z88.8 Allergy status to other drugs, medicaments and biological substances

== ENCOUNTER 2018-01-20 17:08 | Emergency (ER) | payer OTHER ==
[~2018-01-20] VITALS: Ht 160 cm; Wt 59.9 kg
[~2018-01-20 17:08] MED LIST changes: +KEFLEX500 M1 PO; +SEPTDS PO; +TYLENOL EXTRA500 MG PO
[2018-01-20 17:12] VITALS: BP 112/70
[2018-01-20] MEDS ORDERED: ANAPROX DS550 MG PO (19:28)
== END 2018-01-20 19:34 | disposition home or self-care (01) ==
LOC: ED 17:08
DX: M77.8 Other enthesopathies, not elsewhere classified (principal); F17.200 Nicotine dependence, unspecified, uncomplicated; Z88.6 Allergy status to analgesic agent; Z88.1 Allergy status to other antibiotic agents

== ENCOUNTER 2018-04-20 20:23 | Emergency (ER) | payer OTHER ==
[~2018-04-20] VITALS: Ht 170.1 cm; Wt 49.9 kg
[~2018-04-20 20:23] MED LIST changes: +ANAPROX DS550 MG PO
[2018-04-20 20:25] VITALS: BP 113/81
[2018-04-20] MEDS ORDERED: LITHIUM CARB300 MG PO (20:27)
[2018-04-20] MEDS ORDERED: CLONIDINE0.2 MG PO (20:28)
[2018-04-20] MEDS ORDERED: SEROQUEL300 MG PO (20:28)
[2018-04-20] MEDS ORDERED: PROTONIX40 MG PO (20:28)
[2018-04-20] MEDS ORDERED: DEPAKOTE500 MG PO (20:28)
[2018-04-20 21:26] LABS: BASO % 0.4 % (0.0-1.0); EOS # 0.1 10*3/uL (0.0-0.4); EOS % 0.9 % (1.0-4.0); LYMPH # 1.2 10*3/uL (1.3-4.4); LYMPH % 17.6 % (27.0-41.0); MEAN CELL VOLUME 96.4 fl (81.0-99.0); MEAN CORPUSCULAR HGB 31.3 pg (27.0-31.0); MEAN CORPUSCULAR HGB CONC 32.5 g/dl (33.0-37.0); MEAN PLATELET VOLUME 10.4 fl (9.6-12.3); MONO # 0.4 10*3/uL (0.1-1.0); MONO % 5.6 % (3.0-9.0); NEUT # 5.1 10*3/uL (2.3-7.9); NEUT % 75.4 % (47.0-73.0); PLATELET COUNT AUTOMATED 310 10*3/uL (130-400); RED BLOOD COUNT 4.15 10*6/uL (4.10-5.10); RED CELL DISTRI WIDTH 13.4 % (0-14.5); WHITE BLOOD COUNT 6.8 10*3/uL (4.8-10.8)
[2018-04-20 21:41] LABS: ALBUMIN 3.5 gm/dl (3.1-4.5); ALKALINE PHOSPHATASE 54 U/L (45-117); BUN 9 mg/dl (7-24); CHLORIDE 110 mmol/L (98-107); POTASSIUM 3.5 mmol/L (3.5-5.1); SGOT/AST 9 IU/L (3-35); SGPT/ALT 14 U/L (12-78); SODIUM 142 mmol/L (136-145); TOTAL PROTEIN 6.9 gm/dL (6.4-8.2)
[2018-04-20 21:51] LABS: VALPROIC ACID (DEPAKENE) < 3.0 ug/ml (50-100)
[2018-04-20 22:26] LABS: URINE AMPHETAMINES > 1000 (1000ng/ml); URINE BARBITURATES < 200 (200ng/ml); URINE BENZODIAZEPINES < 200 (200ng/ml); URINE CANNABINOIDS (THC) < 50 (50ng/ml); URINE COCAINE < 300 (300ng/ml); URINE METHADONE < 300 (300ng/ml); URINE OPIATES > 300 (300ng/ml); URINE PHENCYCLIDINE < 25 (25ng/ml)
== END 2018-04-20 23:35 | disposition home or self-care (01) ==
LOC: ED 20:23
PROVIDERS: Physician Assistant
DX: R53.83 Other fatigue (principal); F17.200 Nicotine dependence, unspecified, uncomplicated; Z88.6 Allergy status to analgesic agent; Z88.1 Allergy status to other antibiotic agents; Z79.899 Other long term (current) drug therapy; Z90.710 Acquired absence of both cervix and uterus

== ENCOUNTER 2018-05-16 19:04 | Inpatient (IN) | payer OTHER ==
[~2018-05-16] VITALS: Ht 175.3 cm; Wt 51.3 kg
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
--- NOTE | ~2018-05-16 | EKG ---
[place], [place] ELECTROCARDIOGRAM REPORT NAME: KYLEE TRAORE UNIT #: [id number] ROOM: [facility] DOCTOR: ADRIAN DRAFT REPORT BIRTHDATE: [birth year] [facility] Test Date: 2018-05-16 Test Time: 20:49:58 Pat Name: KYLEE TRAORE Department: Room: [facility] Gender: F [place] Hand: Brandee Tejada : 1980 Requested By: LOREN WAYNE Order Number: [id number] Reading MD: Lata Mathis MD Measurements Intervals [place] Rate: 77 P: 85 AK: 146 QRS: 76 QRSD: 97 T: 70 QT: 419 QTc: 475 Interpretive Statements Sinus rhythm Electronically Signed On 05-20-2018 9:41:24 PST by Lata Mathis MD CM:EKGRPT:ELECTROCARDIOGRAM REPORT [id number] LOREN DUBOSE DRAFT REPORT LOREN WAYNE DO
[~2018-05-16 19:04] MED LIST changes: +CLONIDINE0.2 MG PO; +DEPAKOTE500 MG PO; +LITHIUM CARB300 MG PO; +PROTONIX40 MG PO; +SEROQUEL300 MG PO
[2018-05-16 19:11] VITALS: BP 142/72
[2018-05-16 19:37] LABS: BASO # 0.1 10*3/uL (0.0-0.1); BASO % 0.7 % (0.0-1.0); EOS # 0.2 10*3/uL (0.0-0.4); EOS % 2.2 % (1.0-4.0); HEMATOCRIT 35.6 % (37.0-47.0); HEMOGLOBIN 11.9 g/dl (12.0-16.0); LYMPH # 2.2 10*3/uL (1.3-4.4); LYMPH % 32.6 % (27.0-41.0); MEAN CELL VOLUME 95.4 fl (81.0-99.0); MEAN CORPUSCULAR HGB 31.9 pg (27.0-31.0); MEAN CORPUSCULAR HGB CONC 33.4 g/dl (33.0-37.0); MEAN PLATELET VOLUME 10.3 fl (9.6-12.3); MONO # 0.7 10*3/uL (0.1-1.0); MONO % 10.6 % (3.0-9.0); NEUT # 3.7 10*3/uL (2.3-7.9); NEUT % 53.6 % (47.0-73.0); PLATELET COUNT AUTOMATED 303 10*3/uL (130-400); RED BLOOD COUNT 3.73 10*6/uL (4.10-5.10); RED CELL DISTRI WIDTH 13.8 % (0-14.5); WHITE BLOOD COUNT 6.9 10*3/uL (4.8-10.8)
[2018-05-16 19:43] LABS: BILIRUBIN NEGATIVE (NEGATIVE); BLOOD NEGATIVE (NEGATIVE); CLARITY CLEAR (CLEAR); COLOR YELLOW (YELLOW); GLUCOSE NEGATIVE (NEGATIVE); KETONE TRACE (NEGATIVE); LEUKO ESTERASE NEGATIVE (NEGATIVE); NITRITE NEGATIVE (NEGATIVE); PH 6.5 (5.0-9.0)
[2018-05-16 19:52] LABS: URINE AMPHETAMINES > 1000 (1000ng/ml); URINE BARBITURATES < 200 (200ng/ml); URINE BENZODIAZEPINES < 200 (200ng/ml); URINE CANNABINOIDS (THC) < 50 (50ng/ml); URINE COCAINE < 300 (300ng/ml); URINE METHADONE < 300 (300ng/ml); URINE OPIATES < 300 (300ng/ml)
[2018-05-16 19:53] LABS: BACTERIA 1+; EPITHELIAL CELLS 16-20; URINE PHENCYCLIDINE < 25 (25ng/ml)
[2018-05-16 20:00] VITALS: BP 122/81
[2018-05-16 20:10] LABS: ALBUMIN 3.5 gm/dl (3.1-4.5); BUN 13 mg/dl (7-24); CHLORIDE 108 mmol/L (98-107); CREATININE 0.83 mg/dL (0.55-1.02); POTASSIUM 3.9 mmol/L (3.5-5.1); SGOT/AST 10 IU/L (3-35); SGPT/ALT 13 U/L (12-78); SODIUM 141 mmol/L (136-145); TOTAL PROTEIN 7.1 gm/dL (6.4-8.2)
[2018-05-16 20:11] LABS: ALKALINE PHOSPHATASE 55 U/L (45-117)
[2018-05-16 20:15] LABS: ACETAMINOPHEN (TYLENOL) < 5.0 ug/ml (10-30); ETHYL ALCOHOL < 3.0 mg/dl (<3)
--- NOTE | 2018-05-16 22:55 | NUR ---
PATIENT SLEEPING IN BED, NO SIGNS OF DISTRESS
--- NOTE | 2018-05-17 | NUR ---
PATIENT SLEEPING IN BED, IN NO SIGNS OF DISTRESS, IN VIEW OF NURSES STATIONS.
[2018-05-17 00:20] VITALS: BP 124/72
[2018-05-17] MEDS ORDERED: LITHIUM CARBON300 MG PO (00:51)
[2018-05-17] MEDS ORDERED: NEURONTIN300 MG PO ×2 (00:54→00:55)
[2018-05-17 01:00] VITALS: BP 122/81
--- NOTE | 2018-05-17 01:00 | NUR ---
A 37, admitted to ICCU, under the services of MAHSA Lyman DO with a diagnosis of AMPHETAMINE INTOXICATION DELIRIUM METABOLIC ENCEPHALOPATHY. Chief complaint is SEVERAL (FLIGHT OF IDEAS). Patient arrived via ambulance from ER. Monitor applied. Initial assessment completed. Vital signs taken and recorded. MAHSA LYMAN DO notified of admission to the unit. Orders received. See assessment for past medical history, medications and allergies. Patient and/or family oriented to unit. [facility] ICCU visitation policy reviewed. Clothing/patient valuable form completed. YG CHAPMAN
--- NOTE | 2018-05-17 01:00 | NUR ---
A 37, admitted to ICCU, under the services of MAHSA Lyman DO with a diagnosis of DILERIUM, MET [facility]. Chief complaint is PARANOID. Patient arrived via stretcher from ER. Monitor applied. Initial assessment completed. Vital signs taken and recorded. MAHSA LYMAN DO notified of admission to the unit. Orders received. See assessment for past medical history, medications and allergies. Patient and/or family oriented to unit. [facility] ICCU visitation policy reviewed. Clothing/patient valuable form completed. OLAMIDE CORBETT A
[2018-05-17 04:00] VITALS: BP 121/83
[2018-05-17 04:48] LABS: BASO % 0.8 % (0.0-1.0); EOS # 0.2 10*3/uL (0.0-0.4); EOS % 3.1 % (1.0-4.0); HEMOGLOBIN 11.1 g/dl (12.0-16.0); LYMPH # 2.2 10*3/uL (1.3-4.4); LYMPH % 42.3 % (27.0-41.0); MEAN CELL VOLUME 95.9 fl (81.0-99.0); MEAN CORPUSCULAR HGB 30.4 pg (27.0-31.0); MEAN CORPUSCULAR HGB CONC 31.7 g/dl (33.0-37.0); MEAN PLATELET VOLUME 10.1 fl (9.6-12.3); MONO # 0.6 10*3/uL (0.1-1.0); MONO % 11.3 % (3.0-9.0); NEUT # 2.2 10*3/uL (2.3-7.9); NEUT % 42.3 % (47.0-73.0); PLATELET COUNT AUTOMATED 277 10*3/uL (130-400); RED BLOOD COUNT 3.65 10*6/uL (4.10-5.10); RED CELL DISTRI WIDTH 13.8 % (0-14.5); WHITE BLOOD COUNT 5.1 10*3/uL (4.8-10.8)
[2018-05-17 04:59] LABS: INTERNATIONAL NORM RATIO 1.1 (2.0-3.5)
[2018-05-17 05:11] LABS: BUN 8 mg/dl (7-24); CHLORIDE 111 mmol/L (98-107); CREATININE 0.66 mg/dL (0.55-1.02); POTASSIUM 3.7 mmol/L (3.5-5.1); SODIUM 141 mmol/L (136-145)
[2018-05-17 05:12] LABS: CHOLESTEROL 113 mg/dL (<200); PHOSPHOROUS 3.8 mg/dL (2.5-4.9); TRIGLYCERIDES 39 mg/dl (<150); VLDL CHOLESTEROL 8 mg/dL (6-40)
[2018-05-17 05:22] LABS: FREE T4 1.14 ng/dl (0.76-1.46); HDL CHOLESTEROL 39 mg/dl (40-60); LDL CHOLESTEROL 66 mg/dL (9-159); THYROID STIM HORMONE (HS) 0.374 uIU/ml (0.358-4.75)
[2018-05-17 08:00] VITALS: BP 104/72
--- NOTE | 2018-05-17 08:00 | NUR ---
ON AM ASSESSMENT PT INSISTED I TAKE HER IV OUT. WOULD NOT BED HER ARM AND STATING THE "NEEDLE IS HITTING MY VEIN". I FLUSHED IV AND IT HAD A GREAT BLOOD RETURN BUT PT INSISTED I TAKE IT OUT AND WAS BECOMING AGITATED SAYING HER ARM AND HAND WERE SWELLING FROM IT. NO SWELLING TO ARM OR HAND BUT I TOOK THE IV OUT AT PT'S REQUEST.
[2018-05-17 08:36] LABS: VITAMIN D, 25-HYDROXY 18.7 ng/mL (30-100)
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
--- NOTE | 2018-05-17 10:22 | NUR ---
I LEFT A MESSAGE WITH ROXANN ON [facility] FOR DR BREWSTER CONSULT. SHE STATED HE HAS ALREADY BEEN IN FOR TODAY SO HE WILL GET IT TOMORROW. DR LAWSON MADE AWARE OF THIS.
--- NOTE | 2018-05-17 10:27 | NUR ---
I SPOKE WITH ECHO HENDRIX TO MAKE HER AWARE OF NEW CONSULT ORDER. SHE STATED SHE WILL BE IN TO SEE PT TODAY.
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
[2018-05-17 16:00] VITALS: BP 108/74
--- NOTE | 2018-05-17 19:02 | NUR ---
REPORT GIVEN TO OLRNE AT [facility] [phone].
--- NOTE | 2018-05-17 19:53 | NUR ---
PT DC TO [facility]IA [facility] WITH ALL BELONGINGS INCLUDING MEDS FROM PHARMACY.
[2018-05-19 05:06] LABS: GONOCOCCUS BY NAA Negative (Negative)
== END 2018-05-17 19:53 | disposition home health service (06) | DRG 896 ==
LOC: ED 19:04 → EDHOLD 21:50 → ICCU 21:50
PROVIDERS: Internal Medicine; Student in an Organized Health Care Education/Training Program; ADMIT Internal Medicine
DX: F15.921 Other stimulant use, unspecified with intoxication delirium (principal); G93.41 Metabolic encephalopathy; R65.10 Systemic inflammatory response syndrome (SIRS) of non-infectious origin without acute organ dysfunction; Z68.1 Body mass index [BMI] 19.9 or less, adult; E83.41 Hypermagnesemia; R00.0 Tachycardia, unspecified; R73.9 Hyperglycemia, unspecified; R63.6 Underweight; F22 Delusional disorders; D64.9 Anemia, unspecified; R82.71 Bacteriuria; F17.200 Nicotine dependence, unspecified, uncomplicated; F31.9 Bipolar disorder, unspecified; E87.8 Other disorders of electrolyte and fluid balance, not elsewhere classified; F39 Unspecified mood [affective] disorder; K21.9 Gastro-esophageal reflux disease without esophagitis; F41.9 Anxiety disorder, unspecified; Z90.10 Acquired absence of unspecified breast and nipple; Z90.710 Acquired absence of both cervix and uterus; Z71.6 Tobacco abuse counseling; Z98.51 Tubal ligation status; Z82.49 Family history of ischemic heart disease and other diseases of the circulatory system; Z88.8 Allergy status to other drugs, medicaments and biological substances; Z79.899 Other long term (current) drug therapy

== ENCOUNTER 2018-06-20 21:39 | Emergency (ER) | payer OTHER ==
[~2018-06-20] VITALS: Ht 160 cm; Wt 56.7 kg
[~2018-06-20 21:39] MED LIST changes: +LITHIUM CARBON300 MG PO; +NEURONTIN300 MG PO
[2018-06-20 21:42] VITALS: BP 132/95
== END 2018-06-20 23:13 | disposition home or self-care (01) ==
LOC: ED 21:39
DX: S61.412A Laceration without foreign body of left hand, initial encounter (principal); F17.200 Nicotine dependence, unspecified, uncomplicated; Z23 Encounter for immunization; Z88.1 Allergy status to other antibiotic agents; Z88.6 Allergy status to analgesic agent; Z79.899 Other long term (current) drug therapy; W45.8XXA Other foreign body or object entering through skin, initial encounter; Y93.G1 Activity, food preparation and clean up; Y92.89 Other specified places as the place of occurrence of the external cause; Y99.8 Other external cause status

== ENCOUNTER 2019-02-24 16:11 | Emergency (ER) | payer SELFPAY ==
[~2019-02-24] VITALS: Ht 160 cm; Wt 54.4 kg
--- NOTE | ~2019-02-24 | EKG ---
[place], [place] ELECTROCARDIOGRAM REPORT NAME: KYLEE TRAORE UNIT #: [id number] ROOM: DOCTOR: EPIPHANY DRAFT REPORT BIRTHDATE: [birth year] [facility] Test Date: 2019-02-24 Test Time: 18:11:19 Pat Name: KYLEE TRAORE Department: Room: Gender: F Inspector [employer]: : 1980 Requested By: ALICE WOODY DNP Order Number: [id number] Reading MD: Chito Wilson MD Measurements Intervals [place] Rate: 71 P: 78 VT: 134 QRS: 72 QRSD: 96 T: 69 QT: 406 QTc: 442 Interpretive Statements Sinus rhythm Baseline wander in lead(s) V1 Compared to ECG 05/16/2018 20:49:58 No significant changes Electronically Signed On 02-27-2019 8:52:51 PST by Chito Wilson MD CM:EKGRPT:ELECTROCARDIOGRAM REPORT [id number] ALICE WOODY DNP EPIPHANY DRAFT REPORT ALICE WOODY DNP
[2019-02-24 16:12] VITALS: BP 130/100
[2019-02-24 18:17] LABS: BASO # 0.1 10*3/uL (0.0-0.1); BASO % 0.6 % (0.0-1.0); EOS # 0.1 10*3/uL (0.0-0.4); EOS % 0.9 % (1.0-4.0); HEMOGLOBIN 13.1 g/dl (12.0-16.0); LYMPH # 1.9 10*3/uL (1.3-4.4); LYMPH % 24.1 % (27.0-41.0); MEAN CELL VOLUME 96.4 fl (81.0-99.0); MEAN CORPUSCULAR HGB 31.6 pg (27.0-31.0); MEAN CORPUSCULAR HGB CONC 32.8 g/dl (33.0-37.0); MEAN PLATELET VOLUME 9.8 fl (9.6-12.3); MONO # 0.4 10*3/uL (0.1-1.0); MONO % 4.8 % (3.0-9.0); NEUT # 5.6 10*3/uL (2.3-7.9); NEUT % 69.4 % (47.0-73.0); PLATELET COUNT AUTOMATED 266 10*3/uL (130-400); RED BLOOD COUNT 4.15 10*6/uL (4.10-5.10); WHITE BLOOD COUNT 8.1 10*3/uL (4.8-10.8)
[2019-02-24 18:25] LABS: BILIRUBIN NEGATIVE (NEGATIVE); BLOOD NEGATIVE (NEGATIVE); CLARITY CLEAR (CLEAR); COLOR YELLOW (YELLOW); GLUCOSE NEGATIVE (NEGATIVE); KETONE NEGATIVE (NEGATIVE); LEUKO ESTERASE NEGATIVE (NEGATIVE); NITRITE NEGATIVE (NEGATIVE); SPECIFIC GRAVITY 1.025 (1.005-1.030); UROBILINOGEN 0.2 E.U./dl (0.2-1.0)
[2019-02-24 18:34] LABS: ALBUMIN 3.7 gm/dl (3.1-4.5); ALKALINE PHOSPHATASE 59 U/L (45-117); BUN 9 mg/dl (7-24); CHLORIDE 109 mmol/L (98-107); CREATININE 0.78 mg/dL (0.55-1.02); SGOT/AST 22 IU/L (3-35); SGPT/ALT 32 U/L (12-78); SODIUM 141 mmol/L (136-145); TOTAL PROTEIN 6.6 gm/dL (6.4-8.2)
[2019-02-24 18:37] LABS: URINE AMPHETAMINES > 1000 (1000ng/ml); URINE BARBITURATES < 200 (200ng/ml); URINE BENZODIAZEPINES < 200 (200ng/ml); URINE CANNABINOIDS (THC) < 50 (50ng/ml); URINE COCAINE < 300 (300ng/ml); URINE METHADONE < 300 (300ng/ml); URINE OPIATES < 300 (300ng/ml); URINE PHENCYCLIDINE < 25 (25ng/ml)
[2019-02-24 18:42] LABS: WBC 0-2 wbc/hpf (0-5)
[2019-02-24 18:43] LABS: BACTERIA 3+; EPITHELIAL CELLS 21-30
[2019-02-24 18:45] LABS: ACETAMINOPHEN (TYLENOL) < 5.0 ug/ml (10-30); ETHYL ALCOHOL < 3.0 mg/dl (<3)
== END 2019-02-24 21:25 | disposition home or self-care (01) ==
LOC: ED 16:11
PROVIDERS: Nurse Practitioner Family
DX: F15.10 Other stimulant abuse, uncomplicated (principal); F11.10 Opioid abuse, uncomplicated; F12.10 Cannabis abuse, uncomplicated; J45.909 Unspecified asthma, uncomplicated; F41.9 Anxiety disorder, unspecified; G43.909 Migraine, unspecified, not intractable, without status migrainosus; F31.9 Bipolar disorder, unspecified; Z87.891 Personal history of nicotine dependence

== ENCOUNTER 2019-12-19 05:48 | Inpatient (IN) | payer OTHER ==
[~2019-12-19] VITALS: Ht 161.3 cm; Wt 57.8 kg
[2019-12-19] VITALS (8 sets, daily range): BP systolic 112–125; BP diastolic 74–84
--- NOTE | 2019-12-19 06:15 | NUR ---
GAVE PT. WARM BLANKETS.
--- NOTE | 2019-12-19 06:17 | NUR ---
POLICE AT BEDSIDE.
--- NOTE | 2019-12-19 06:32 | NUR ---
PT. RESTING IN BED WITH EYES CLOSED. VITALS STABLE. IN NO DISTRESS, RR EASY AND NON LABORED. CALL LIGHT IN REACH. WILL CONT TO MONITOR.
--- NOTE | 2019-12-19 07:13 | NUR ---
REPORT FROM AURELIA HUNT. PT RESTING IN BED. SCOTTS.
--- NOTE | 2019-12-19 10:04 | NUR ---
attempted to talk to client to give her resources but she is still drowsy.
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
--- NOTE | 2019-12-19 15:35 | NUR ---
A 39 YO FEMALE, admitted to , under the services of JUAN RAMON Riley DO with a diagnosis of OPIOID USE DISORDER. Chief complaint is ARRIVED TO ER UNCONSCIOUS AND GIVEN NARCAN, HAS SINCE BEEN OBTUNDED AND UNABLE TO RECALL WHAT HAPPENED SINCE LAST NIGHT OR HOW SHE GOT HERE. Patient arrived via stretcher from ER. Monitor applied. Initial assessment completed. Vital signs taken and recorded. JUAN RAMON RILEY DO notified of admission to the unit. Orders received. See assessment for past medical history, medications and allergies. Patient and/or family oriented to unit. [facility] ICCU visitation policy reviewed. Clothing/patient valuable form completed. RIVAS COX
--- NOTE | 2019-12-19 15:37 | NUR ---
[place] STAFF SPOKE WITH PATIENT ABOUT [facility]. PATIENT MEETS [facility]. [place] STAFF WILL FOLLOW UP PATIENT CONCERNING HER AFTERCARE PLAN. YASH MORENO B.A. RIBBON TIER
--- NOTE | 2019-12-19 16:29 | NUR ---
PATIENT DROWSY, FALLING ASLEEP INTERMITTENTLY WHEN ASKED QUESTIONS AND DURING ABG DRAW BY RESPIRATORY THERAPISTS. ADMINISTERED 2MG IV NARCAN X 1 ORDERED. PATIENT AROUSED, C/O FEELING COLD AND SHIVERING. VERY TEARFUL AT THIS TIME, STATES CANNOT RECALL HOW SHE GOT HERE OR WHO BROUGHT HER HERE OR WHO SHE WAS WITH LAST NIGHT. SHE STATES DOES NOT RECALL TAKING ANY DRUGS.
[2019-12-19 16:38] LABS: ABG BASE EXCESS -2.3 mmol/L (-2.0-2.0); ARTERIAL BLOOD GAS PH 7.338 (7.35-7.45)
--- NOTE | 2019-12-19 16:44 | NUR ---
PATIENT TO CT BY CART, REMAINS ANXIOUS AND SHIVERING.
[2019-12-19 16:59] LABS: BASO % 0.3 % (0.0-1.0); EOS # 0.1 10*3/uL (0.0-0.4); EOS % 0.9 % (1.0-4.0); HEMATOCRIT 41.9 % (37.0-47.0); LYMPH # 1.6 10*3/uL (1.3-4.4); LYMPH % 14.8 % (27.0-41.0); MEAN CELL VOLUME 96.5 fl (81.0-99.0); MEAN CORPUSCULAR HGB 30.6 pg (27.0-31.0); MEAN CORPUSCULAR HGB CONC 31.7 g/dl (33.0-37.0); MEAN PLATELET VOLUME 10.1 fl (9.6-12.3); MONO # 0.8 10*3/uL (0.1-1.0); MONO % 7.8 % (3.0-9.0); NEUT # 8.2 10*3/uL (2.3-7.9); PLATELET COUNT AUTOMATED 237 10*3/uL (130-400); RED BLOOD COUNT 4.34 10*6/uL (4.10-5.10); RED CELL DISTRI WIDTH 13.2 % (0-14.5); WHITE BLOOD COUNT 10.7 10*3/uL (4.8-10.8)
--- NOTE | 2019-12-19 17:04 | NUR ---
PATIENT RETURNED FROM CT SCAN, NSS BOLUS STARTED, PATIENT INSTRUCTED THAT URINE SAMPLES NEEDED SOON POSSIBLE. SHE IS TEARFUL, STATES SOMETHING BAD HAS HAPPENED TO HER, HER VAGINAL AREA IS HAVING A LOT OF PAIN.
[2019-12-19 17:36] LABS: ALBUMIN 3.5 gm/dl (3.1-4.5); ALKALINE PHOSPHATASE 50 U/L (45-117); BUN 8 mg/dl (7-24); CHLORIDE 109 mmol/L (98-107); CREATININE 0.76 mg/dL (0.55-1.02); POTASSIUM 3.7 mmol/L (3.5-5.1); SGOT/AST 8 IU/L (3-35); SGPT/ALT 18 U/L (12-78); SODIUM 138 mmol/L (136-145); TOTAL PROTEIN 6.8 gm/dL (6.4-8.2)
--- NOTE | 2019-12-19 17:50 | NUR ---
PHONED [facility] TO VERIFY PATIENT'S HOME MEDS. THE PATIENT HAS NOT FILLED ANY PRESCRIPTIONS SINCE JUNE, PER THE PHARMACIST.
--- NOTE | 2019-12-19 20:10 | NUR ---
SPOKE TO DR YAÑEZ AND SHE STATES I CAN ADD TYLENOL PO ORDER ALONG WITH RECTAL ORDER
--- NOTE | 2019-12-19 20:36 | NUR ---
PRN TYLENOL PO GIVENF OR COMPLAINTS OF A HEAD ACHE. WILL MONITOR FOR EFFECTIVENESS. CALL LIGHT WITHIN REACH
--- NOTE | 2019-12-19 21:30 | NUR ---
PT STATES THAT SHE STILL HAS A HEADACHE DESPITE TAKING THE TYLENOL. WILL CONTINUE TO MONITOR
[2019-12-19 21:37] LABS: BILIRUBIN Negative; BLOOD Negative (Negative); CLARITY Cloudy (Clear); COLOR Yellow (Yellow); GLUCOSE Trace; KETONE Negative; LEUKO ESTERASE Negative (Negative); NITRITE Negative (Negative); SPECIFIC GRAVITY 1.015 (1.001-1.030); UROBILINOGEN 0.2 E.U./dl (0.0-1.0)
[2019-12-19 21:40] LABS: URINE AMPHETAMINES > 1000 (1000ng/ml); URINE BARBITURATES < 200 (200ng/ml); URINE BENZODIAZEPINES > 200 (200ng/ml); URINE CANNABINOIDS (THC) < 50 (50ng/ml); URINE COCAINE < 300 (300ng/ml); URINE METHADONE < 300 (300ng/ml); URINE OPIATES < 300 (300ng/ml)
[2019-12-19 21:42] LABS: BACTERIA 4+; MUCOUS TRACE; RBC 0-2 rbc/hpf (0-2)
[2019-12-19 21:44] LABS: URINE PHENCYCLIDINE < 25 (25ng/ml)
[2019-12-20] VITALS: BP 127/73
--- NOTE | 2019-12-20 00:10 | NUR ---
PT OFF FLOOR TO CT
--- NOTE | 2019-12-20 00:33 | NUR ---
PT BACK ON FLOOR AND HOOKED UP TO FLUIDS
--- NOTE | 2019-12-20 02:40 | NUR ---
24 HR chart check completed.
--- NOTE | 2019-12-20 04:13 | NUR ---
Patient sleeping. Respirations relaxed and easy. CALL LIGHT WITHIN REACH YAHS BRODERICK
[2019-12-20 06:37] LABS: BASO % 0.4 % (0.0-1.0); EOS # 0.1 10*3/uL (0.0-0.4); EOS % 3.1 % (1.0-4.0); HEMATOCRIT 36.8 % (37.0-47.0); LYMPH # 2.1 10*3/uL (1.3-4.4); LYMPH % 46.4 % (27.0-41.0); MEAN CELL VOLUME 94.6 fl (81.0-99.0); MEAN CORPUSCULAR HGB 30.6 pg (27.0-31.0); MEAN CORPUSCULAR HGB CONC 32.3 g/dl (33.0-37.0); MONO # 0.4 10*3/uL (0.1-1.0); MONO % 8.8 % (3.0-9.0); NEUT # 1.9 10*3/uL (2.3-7.9); NEUT % 41.3 % (47.0-73.0); PLATELET COUNT AUTOMATED 230 10*3/uL (130-400); RED BLOOD COUNT 3.89 10*6/uL (4.10-5.10); RED CELL DISTRI WIDTH 12.9 % (0-14.5); WHITE BLOOD COUNT 4.6 10*3/uL (4.8-10.8)
[2019-12-20 06:54] LABS: ALBUMIN 3.1 gm/dl (3.1-4.5); BUN 5 mg/dl (7-24); CHLORIDE 110 mmol/L (98-107); POTASSIUM 4.2 mmol/L (3.5-5.1); SODIUM 137 mmol/L (136-145)
[2019-12-20 07:01] LABS: ALKALINE PHOSPHATASE 47 U/L (45-117); CHOLESTEROL 112 mg/dL (<200); CREATININE 0.59 mg/dL (0.55-1.02); HDL CHOLESTEROL 42 mg/dl (40-60); LDL CHOLESTEROL 60 mg/dL (9-159); SGOT/AST 7 IU/L (3-35); SGPT/ALT 15 U/L (12-78); THYROID STIM HORMONE (HS) 0.218 uIU/ml (0.358-4.75); TOTAL PROTEIN 5.9 gm/dL (6.4-8.2); TRIGLYCERIDES 52 mg/dl (<150); VLDL CHOLESTEROL 10 mg/dL (6-40)
[2019-12-20 07:07] LABS: VITAMIN D, 25-HYDROXY 20.8 ng/mL (30-100)
--- NOTE | 2019-12-20 07:32 | NUR ---
MEDICATED WITH PRN PO TYLENOL AND PRN IV ZOFRAN FOR RIGHT SIDE MIGRAINE PAIN W/SLIGHT NAUSEA.
[2019-12-20 07:42] VITALS: BP 120/72
[2019-12-20 08:00] VITALS: BP 99/53
--- NOTE | 2019-12-20 08:22 | NUR ---
PRN TYLENOL AND ZOFRAN INEFFECTIVE FOR MIGRAINE PAIN/NAUSEA. PHONED [employer] FOR ORDERS FOR BENADRYL AND REGLAN IV X 1 NOW, SEE EMAR.
--- NOTE | 2019-12-20 08:48 | NUR ---
ADMINISTERED IV BENADRYL 25MG AND REGLAN IV 5MG X 1 ORDERED FOR MIGRAINE.
--- NOTE | 2019-12-20 09:52 | NUR ---
PER PATIENT, BENADRYL AND REGLAN STARTING TO TAKE EFFECT FOR THE MIGRAINE. STATES "IT'S GETTING THERE".
[2019-12-20 12:00] VITALS: BP 104/51
--- NOTE | 2019-12-20 15:40 | NUR ---
MEDICATED WITH PRN PO MOTRIN AND ROBAXIN FOR BACK PAIN AT THIS TIME.
[2019-12-20 16:00] VITALS: BP 116/60
--- NOTE | 2019-12-20 16:35 | NUR ---
PRN PO MOTRIN AND ROBAXIN EFFECTIVE, PER PATIENT.
[2019-12-20 20:00] VITALS: BP 117/79
--- NOTE | 2019-12-20 20:42 | NUR ---
CALLED NUMBER PROVIDED BY PATIENT, NO ANSWER, PATIENT IS INSISTING THAT SOMEONE CALL THIS NUMER AND TALK TO "STERLING" AND TELL HIM TO BRING HER [employer] CELL PHONE AND SHOES TO HER. EXPLAINED THAT THIS RN WOULD CALL AND TALK WITH THIS PERSON S SHE HAS GIVEN ME PERMISSION TO DO SO.
--- NOTE | 2019-12-20 21:01 | NUR ---
NUMBER AGAIN CALLED AND NO ANSWER. NUMBER FROM [employer] WAS ALSO CALLD WITH NO ANSWER
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
[2019-12-21] VITALS: BP 113/69
--- NOTE | 2019-12-21 08:30 | NUR ---
RESTING IN BED, DENIES ANY COMPLAINTS.
--- NOTE | 2019-12-21 08:46 | NUR ---
CENTRAL SERVICE TECHNICIAN IN TO SPEAK WITH THIS PATIENT. CENTRAL SERVICE TECHNICIAN PROVIDED THIS PATIENT WITH ADVANCE DIRECTIVES FOR [place]. CENTRAL SERVICE TECHNICIAN EXPLAINED THEM. CENTRAL SERVICE TECHNICIAN EXPLAINED THAT SHE CAN HAVE THEM ON FILE WITH HER PCP AND COULD RETURN THEM TO THIS HOSPITAL TO BE FILED IN HER CHART. TASNEEM EXPLAINED THAT THEY COULD NOT BE COMPLETED IN THE STATE [facility] SHE IS A [place] RESIDENT. SHE UNDERSTOOD.
[2019-12-21 12:00] VITALS: BP 134/73
--- NOTE | 2019-12-21 12:01 | NUR ---
Nutritional Support Services Note: Pt has a slightly scabbed abrasion to middle of back. She is eating 100% of meals, receives a regular diet as ordered. Ht.5'4 Wt.128#. IBW 110-130. She will receive a night snack. No other nutrition intervention needed at this time. Will follow if needed. Ny Rodriges Rdn Ld
--- NOTE | 2019-12-21 14:47 | NUR ---
Discharge instructions reviewed with patient/family. Patient receptive and verbalizes understanding. Follow-up care arranged. Written instructions given to patient/family. MONIQUE LEVINE
[2019-12-22] MEDS ORDERED: SEPTDS PO (09:46)
== END 2019-12-21 14:49 | disposition home or self-care (01) | DRG 816 ==
LOC: ED 05:48 → EDHOLD 14:01 → 5E 14:01
PROVIDERS: Registered Nurse; ADMIT Internal Medicine; ATTEND Internal Medicine
DX: T40.1X1A Poisoning by heroin, accidental (unintentional), initial encounter (principal); F11.99 Opioid use, unspecified with unspecified opioid-induced disorder; R30.0 Dysuria; G92 Toxic encephalopathy; F41.9 Anxiety disorder, unspecified; F31.9 Bipolar disorder, unspecified; K21.9 Gastro-esophageal reflux disease without esophagitis; F17.210 Nicotine dependence, cigarettes, uncomplicated; S30.810A Abrasion of lower back and pelvis, initial encounter; X58.XXXA Exposure to other specified factors, initial encounter; Y93.89 Activity, other specified; Y92.89 Other specified places as the place of occurrence of the external cause; Y99.8 Other external cause status; Z79.899 Other long term (current) drug therapy; Z88.8 Allergy status to other drugs, medicaments and biological substances; Z98.51 Tubal ligation status; Z90.710 Acquired absence of both cervix and uterus; Z90.11 Acquired absence of right breast and nipple; Z82.49 Family history of ischemic heart disease and other diseases of the circulatory system; Z82.3 Family history of stroke; Z82.5 Family history of asthma and other chronic lower respiratory diseases; Z82.69 Family history of other diseases of the musculoskeletal system and connective tissue; Q43.0 Meckel's diverticulum (displaced) (hypertrophic)

== ENCOUNTER 2020-10-14 20:18 | Emergency (ER) | payer OTHER ==
[~2020-10-14] VITALS: Wt 59.0 kg
[2020-10-14 20:29] VITALS: BP 128/91
== END 2020-10-14 21:50 | disposition home or self-care (01) ==
LOC: ED 20:18
DX: S93.601A Unspecified sprain of right foot, initial encounter (principal); F17.200 Nicotine dependence, unspecified, uncomplicated; Z88.1 Allergy status to other antibiotic agents; Z88.6 Allergy status to analgesic agent; Z90.711 Acquired absence of uterus with remaining cervical stump; Z98.890 Other specified postprocedural states; Z98.51 Tubal ligation status; W18.42XA Slipping, tripping and stumbling without falling due to stepping into hole or opening, initial encounter; Y93.89 Activity, other specified; Y92.89 Other specified places as the place of occurrence of the external cause; Y99.8 Other external cause status

== ENCOUNTER 2020-11-24 16:47 | Emergency (ER) | payer OTHER ==
[~2020-11-24] VITALS: Ht 160 cm; Wt 56.7 kg
[2020-11-24 17:18] VITALS: BP 120/84
[2020-11-24 17:36] LABS: BASO % 0.5 % (0.0-1.0); EOS # 0.1 10*3/uL (0.0-0.4); EOS % 1.8 % (1.0-4.0); HEMATOCRIT 41.8 % (37.0-47.0); LYMPH % 26.8 % (27.0-41.0); MEAN CELL VOLUME 94.6 fl (81.0-99.0); MEAN CORPUSCULAR HGB 30.5 pg (27.0-31.0); MEAN CORPUSCULAR HGB CONC 32.3 g/dl (33.0-37.0); MEAN PLATELET VOLUME 9.9 fl (9.6-12.3); MONO # 0.5 10*3/uL (0.1-1.0); MONO % 6.9 % (3.0-9.0); NEUT # 4.8 10*3/uL (2.3-7.9); NEUT % 63.7 % (47.0-73.0); PLATELET COUNT AUTOMATED 310 10*3/uL (130-400); RED BLOOD COUNT 4.42 10*6/uL (4.10-5.10); RED CELL DISTRI WIDTH 12.8 % (0-14.5); WHITE BLOOD COUNT 7.6 10*3/uL (4.8-10.8)
[2020-11-24 17:51] LABS: ALBUMIN 3.6 gm/dl (3.1-4.5); ALKALINE PHOSPHATASE 53 U/L (45-117); BUN 12 mg/dl (7-24); CHLORIDE 107 mmol/L (98-107); CREATININE 0.76 mg/dL (0.55-1.02); POTASSIUM 3.8 mmol/L (3.5-5.1); SGOT/AST 11 IU/L (3-35); SGPT/ALT 21 U/L (12-78); SODIUM 140 mmol/L (136-145); TOTAL PROTEIN 7.5 gm/dL (6.4-8.2)
[2020-11-24 17:59] LABS: THYROID STIM HORMONE (HS) 0.642 uIU/ml (0.358-4.75)
== END 2020-11-24 18:19 | disposition home or self-care (01) ==
LOC: ED 16:47
PROVIDERS: Emergency Medicine
DX: R09.89 Other specified symptoms and signs involving the circulatory and respiratory systems (principal); F14.10 Cocaine abuse, uncomplicated; F11.10 Opioid abuse, uncomplicated; F17.200 Nicotine dependence, unspecified, uncomplicated; K21.9 Gastro-esophageal reflux disease without esophagitis; F31.9 Bipolar disorder, unspecified; F41.9 Anxiety disorder, unspecified; Z88.6 Allergy status to analgesic agent; Z88.8 Allergy status to other drugs, medicaments and biological substances; Z98.51 Tubal ligation status; Z90.710 Acquired absence of both cervix and uterus

== ENCOUNTER → 2020-12-24 | Outpatient (CLI) | payer OTHER | END | disposition home or self-care (01) | LOC: US 12-04 13:00 | PROVIDERS: ATTEND Obstetrics & Gynecology | DX: E04.9 Nontoxic goiter, unspecified (principal); N64.4 Mastodynia; Z98.82 Breast implant status ==

== ENCOUNTER 2021-10-27 17:05 | Emergency (ER) | payer OTHER ==
[~2021-10-27] VITALS: Wt 58.1 kg
[2021-10-27 17:24] VITALS: BP 134/94
[2021-10-28] MEDS ORDERED: VALIUM5 MG PO (19:40)
[2021-10-28] MEDS ORDERED: ABILIFY MAINTE400 MG IM (19:40)
[2021-10-28] MEDS ORDERED: PREDNISONE20 M1 PO (20:10)
[2021-10-28] MEDS ORDERED: CEPHALEXIN500 M1 PO (20:10)
== END 2021-10-27 17:45 | disposition home or self-care (01) ==
LOC: ED 17:05
DX: L23.4 Allergic contact dermatitis due to dyes (principal); F14.10 Cocaine abuse, uncomplicated; F11.10 Opioid abuse, uncomplicated; Z98.51 Tubal ligation status; Z90.710 Acquired absence of both cervix and uterus; Z88.6 Allergy status to analgesic agent

== ENCOUNTER 2021-10-28 19:24 | Emergency (ER) | payer OTHER ==
[~2021-10-28] VITALS: Ht 160 cm; Wt 58.1 kg
[2021-10-28 19:38] VITALS: BP 140/78
[2021-10-28] MEDS ORDERED: VALIUM5 MG PO (19:40)
[2021-10-28] MEDS ORDERED: ABILIFY MAINTE400 MG IM (19:40)
[2021-10-28] MEDS ORDERED: PREDNISONE20 M1 PO (20:10)
[2021-10-28] MEDS ORDERED: CEPHALEXIN500 M1 PO (20:10)
== END 2021-10-28 20:40 | disposition home or self-care (01) ==
LOC: ED 19:24
DX: L23.4 Allergic contact dermatitis due to dyes (principal); F14.10 Cocaine abuse, uncomplicated; F11.10 Opioid abuse, uncomplicated; Z90.89 Acquired absence of other organs; Z90.710 Acquired absence of both cervix and uterus; Z98.51 Tubal ligation status; Z88.6 Allergy status to analgesic agent; Z88.8 Allergy status to other drugs, medicaments and biological substances

== ENCOUNTER 2022-09-28 20:27 | Emergency (ER) | payer SELFPAY ==
[~2022-09-28 20:27] MED LIST changes: +ABILIFY MAINTE400 MG IM; +CEPHALEXIN500 M1 PO; +PREDNISONE20 M1 PO; +VALIUM5 MG PO
== END 2022-09-28 22:00 | disposition left against medical advice (07) ==
LOC: ED 20:27
DX: G43.909 Migraine, unspecified, not intractable, without status migrainosus (principal); R22.9 Localized swelling, mass and lump, unspecified; Z53.21 Procedure and treatment not carried out due to patient leaving prior to being seen by health care provider

== ENCOUNTER 2022-11-16 14:00 | Emergency (ER) | payer SELFPAY ==
[~2022-11-16] VITALS: Ht 160 cm; Wt 64.0 kg
[2022-11-16 14:10] VITALS: BP 146/93
[2022-11-16] MEDS ORDERED: PERCOCET 5-3251 EACH PO (16:09)
[2022-11-16] MEDS ORDERED: ONDANSETRON4 MG SL (16:09)
[2022-11-16] MEDS ORDERED: CEPHALEXIN500 M1 PO (16:09)
== END 2022-11-16 16:18 | disposition home or self-care (01) ==
LOC: ED 14:00
DX: S01.21XA Laceration without foreign body of nose, initial encounter (principal); J45.909 Unspecified asthma, uncomplicated; G43.909 Migraine, unspecified, not intractable, without status migrainosus; F41.9 Anxiety disorder, unspecified; F31.9 Bipolar disorder, unspecified; Z88.8 Allergy status to other drugs, medicaments and biological substances; Z90.710 Acquired absence of both cervix and uterus; Z98.51 Tubal ligation status; Z98.890 Other specified postprocedural states; Z90.12 Acquired absence of left breast and nipple; F17.200 Nicotine dependence, unspecified, uncomplicated; F10.10 Alcohol abuse, uncomplicated; F14.10 Cocaine abuse, uncomplicated; F13.10 Sedative, hypnotic or anxiolytic abuse, uncomplicated; W22.8XXA Striking against or struck by other objects, initial encounter; Y93.E9 Activity, other interior property and clothing maintenance; Y92.89 Other specified places as the place of occurrence of the external cause; Y99.8 Other external cause status

== ENCOUNTER 2022-12-27 00:23 | Emergency (ER) | payer OTHER ==
[~2022-12-27] VITALS: Ht 167.6 cm; Wt 63.5 kg
[~2022-12-27 00:23] MED LIST changes: +ONDANSETRON4 MG SL; +PERCOCET 5-3251 EACH PO
[2022-12-27 00:57] LABS: BASO % 0.4 % (0.0-1.0); EOS # 0.1 10*3/uL (0.0-0.4); EOS % 0.9 % (1.0-4.0); HEMATOCRIT 36.2 % (37.0-47.0); LYMPH # 1.6 10*3/uL (1.3-4.4); LYMPH % 20.3 % (27.0-41.0); MEAN CELL VOLUME 92.3 fl (81.0-99.0); MEAN CORPUSCULAR HGB 32.4 pg (27.0-31.0); MEAN CORPUSCULAR HGB CONC 35.1 g/dl (33.0-37.0); MEAN PLATELET VOLUME 10.1 fl (9.6-12.3); MONO # 0.5 10*3/uL (0.1-1.0); MONO % 5.9 % (3.0-9.0); NEUT # 5.6 10*3/uL (2.3-7.9); NEUT % 72.4 % (47.0-73.0); PLATELET COUNT AUTOMATED 250 10*3/uL (130-400); RED BLOOD COUNT 3.92 10*6/uL (4.10-5.10); RED CELL DISTRI WIDTH 12.6 % (0-14.5); WHITE BLOOD COUNT 7.7 10*3/uL (4.8-10.8)
[2022-12-27 01:08] LABS: ACT PARTIAL THROMBO TIME 24.8 SECONDS (20.0-32.1); INTERNATIONAL NORM RATIO 1.1 (2.0-3.5)
[2022-12-27 01:19] LABS: ALKALINE PHOSPHATASE 45 U/L (46-116); BUN 9 mg/dl (9-23); CHLORIDE 109 mmol/L (98-107); LIPASE 42 U/L (12-53); POTASSIUM 3.2 mmol/L (3.4-5.1); SGPT/ALT 8 U/L (10-49); TOTAL PROTEIN 6.8 gm/dL (6.0-8.0)
[2022-12-27 01:24] LABS: ETHYL ALCOHOL < 3.0 mg/dl (<3)
[2022-12-27 04:21] VITALS: BP 123/82
== END 2022-12-27 04:29 | disposition home or self-care (01) ==
LOC: ED 00:23
PROVIDERS: Internal Medicine
DX: T74.21XA Adult sexual abuse, confirmed, initial encounter (principal); R10.9 Unspecified abdominal pain; F31.9 Bipolar disorder, unspecified; F41.9 Anxiety disorder, unspecified; J45.909 Unspecified asthma, uncomplicated; G43.909 Migraine, unspecified, not intractable, without status migrainosus; Z88.8 Allergy status to other drugs, medicaments and biological substances; Z90.710 Acquired absence of both cervix and uterus; Z98.51 Tubal ligation status; Z98.890 Other specified postprocedural states; F11.10 Opioid abuse, uncomplicated; F14.10 Cocaine abuse, uncomplicated; F17.290 Nicotine dependence, other tobacco product, uncomplicated; F13.10 Sedative, hypnotic or anxiolytic abuse, uncomplicated; F10.10 Alcohol abuse, uncomplicated

== ENCOUNTER 2023-03-23 12:58 | Emergency (ER) | payer OTHER ==
[~2023-03-23] VITALS: Ht 160 cm; Wt 59.9 kg
[2023-03-23 14:00] VITALS: BP 133/90
== END 2023-03-23 15:49 | disposition home or self-care (01) ==
LOC: ED 12:58
DX: F41.9 Anxiety disorder, unspecified (principal); R52 Pain, unspecified; R53.83 Other fatigue; L65.9 Nonscarring hair loss, unspecified; R05.9 Cough, unspecified; F17.200 Nicotine dependence, unspecified, uncomplicated; Z88.6 Allergy status to analgesic agent; Z88.1 Allergy status to other antibiotic agents; Z79.899 Other long term (current) drug therapy; Z79.2 Long term (current) use of antibiotics; Z98.51 Tubal ligation status; Z90.711 Acquired absence of uterus with remaining cervical stump